=== PATIENT | male | born 1985 | race Caucasian/White ===

== ENCOUNTER 2019-06-02 10:18 | Emergency (ER) | payer MEDICAID, OTHER ==
[~2019-06-02] VITALS: Ht 185.4 cm; Wt 75.0 kg
[~2019-06-02 10:18] MED LIST: TEST200V10 IM
[2019-06-02] MEDS ORDERED: HYDROcodone/acetaminophen 10/325mg tab PO ONE (10:50)
[2019-06-02] MEDS ORDERED: ibuprofen tablet 400 MG TABLET PO ONE (10:50)
[2019-06-02 11:00] VITALS: BP 187/113
== END 2019-06-02 11:06 | disposition home or self-care (01) ==
LOC: ER 10:19
DX: S80.212A Abrasion, left knee, initial encounter (principal); S80.211A Abrasion, right knee, initial encounter; L98.8 Other specified disorders of the skin and subcutaneous tissue; I10 Essential (primary) hypertension; F12.90 Cannabis use, unspecified, uncomplicated; Z86.19 Personal history of other infectious and parasitic diseases; Z98.890 Other specified postprocedural states; Z79.899 Other long term (current) drug therapy; Y29.XXXA Contact with blunt object, undetermined intent, initial encounter; Y93.89 Activity, other specified; Y92.89 Other specified places as the place of occurrence of the external cause; Y99.8 Other external cause status
CPT/HCPCS: 99283

== ENCOUNTER 2019-08-11 23:23 | Emergency (ER) | payer MEDICAID ==
[~2019-08-11] VITALS: Ht 185.4 cm; Wt 100.0 kg
[2019-08-11 23:30] VITALS: BP 154/93
== END 2019-08-12 01:02 | disposition left against medical advice (07) ==
LOC: ER 23:23
DX: R07.1 Chest pain on breathing (principal); Z53.21 Procedure and treatment not carried out due to patient leaving prior to being seen by health care provider
CPT/HCPCS: 93005

== ENCOUNTER 2019-09-15 00:36 | Inpatient (IN) | payer MEDICAID ==
[~2019-09-15] VITALS: Ht 182.9 cm; Wt 100.0 kg
[2019-09-15] MEDS ORDERED: ondansetron/PF 4mg/2ml inj IV ONE (00:45)
[2019-09-15] MEDS ORDERED: normal saline 1000ML IV soln IVB ONE (00:45)
[2019-09-15] MEDS ORDERED: LIDOcaine 1% w/EPI 1:200,000 injection 10mL vial IM ONE (00:50)
[2019-09-15] MEDS ORDERED: iohexol 300mg/ml 100ml inj. ONE (00:58)
[2019-09-15] MEDS ORDERED: ketamine 50 mg/ml 10ml vial IV ONE (01:00)
[2019-09-15] MEDS: morphine 4 MG/ML inj SYRINge IV PRN ×3 (01:09→07:45)
[2019-09-15] MEDS ORDERED: LIDOcaine 1% W/epiNEPHrine 1:100,000 20ml vial IJ ONE (01:15)
[2019-09-15 01:30] LABS: BASOPHILS % (AUTO) 0.4 % (0-1); EOSINOPHILS # (AUTO) 0.3 X10'3 (0-0.9); EOSINOPHILS % (AUTO) 5.7 % (0-6); HEMATOCRIT 44.6 % (42.0-52.0); HEMOGLOBIN 15.4 g/dl (14.0-17.9); LYMPHOCYTES # (AUTO) 1.7 X10'3 (1.1-4.8); LYMPHOCYTES % (AUTO) 31.2 % (21-51); MEAN CORPUSCULAR HEMOGLOBIN 31.8 PG (27.0-31.0); MEAN CORPUSCULAR HGB CONC 34.5 g/dL (33.0-36.5); MEAN CORPUSCULAR VOLUME 92.2 FL (78-98); MEAN PLATELET VOLUME 7.2 FL (7.4-10.4); MONOCYTES # (AUTO) 0.5 X10'3 (0-0.9); MONOCYTES % (AUTO) 8.4 % (2-12); NEUTROPHILS # (AUTO) 2.9 X10'3 (1.8-7.7); NEUTROPHILS % (AUTO) 54.3 % (42-75); PLATELET COUNT 203 X10'3 (140-440); RED BLOOD COUNT 4.84 X10'6 (4.70-6.10); RED CELL DISTRIBUTION WIDTH 13.6 % (11.5-14.5); WHITE BLOOD COUNT 5.4 X10'3 (4.5-11.0)
[2019-09-15 01:37] LABS: ALANINE AMINOTRANSFERASE 45 U/L (12-78); ALBUMIN 3.2 G/DL (3.4-5.0); ALBUMIN/GLOBULIN RATIO 1.1 (1.1-1.5); ALKALINE PHOSPHATASE 76 IU/L (46-116); ANION GAP 7 (8-16); ASPARTATE AMINO TRANSFERASE 29 U/L (10-37); BILIRUBIN,TOTAL 0.4 MG/DL (0.1-1.0); BLOOD UREA NITROGEN 17 MG/DL (7-18); BUN/CREATININE RATIO 13.6 (5.4-32.0); CALCIUM 8.1 MG/DL (8.5-10.1); CHLORIDE 104 MMOL/L (99-107); CREATININE 1.25 MG/DL (0.60-1.10); GLUCOSE 143 MG/DL (70-104); POTASSIUM 3.7 MMOL/L (3.5-5.1); SODIUM 136 MMOL/L (135-145); TOTAL CARBON DIOXIDE 25.1 MMOL/L (24-32); TOTAL PROTEIN 6.2 G/DL (6.4-8.2); eGFR 66 ML/MIN
[2019-09-15] MEDS ORDERED: fentaNYL/PF 50MCG/1 ML 2ML syringe ONE (01:38)
[2019-09-15] MEDS ORDERED: naloxone 0.4 mg/ml inj IV PRN (01:45)
[2019-09-15] MEDS ORDERED: ondansetron/PF 4mg/2ml inj IV PRN (01:45)
[2019-09-15] MEDS ORDERED: metoclopramide 5 mg/ml inj IV PRN (01:45)
[2019-09-15] MEDS ORDERED: HYDROcodone/acetaminophen 10/325mg tab PO PRN (01:45)
--- NOTE | 2019-09-15 02:28 | NUR ---
sigrid contacted case#[id number]
[2019-09-15 03:10] VITALS: BP 114/58
--- NOTE | 2019-09-15 03:10 | NUR ---
Pt arrived to floor, pt with garbled speech, and unable to hold eyes open, oriented to name only at time time. Pt needing to be reoriented. Will place pt into room with sitter. Dressing to left lateral chest coming off, dressing applied and secured tubing. Approx 400ml of sang blood in chest tube. No crepitus, or air leak, to wall suction. O2 97%RA.
--- NOTE | 2019-09-15 06:19 | NUR ---
Problems reprioritized. Patient report given, questions answered & plan of care reviewed with Daja. Addendum: 09/15/19 at 0621 by Eve Trejo RN Amended: Links added.
[2019-09-15 07:30] VITALS: BP 112/67
--- NOTE | 2019-09-15 09:05 | NUR ---
Per Doctor Tacos, he will come and see patient. Get chest x-ray, put order for inpatient status. Give him a diet, regular.
--- NOTE | 2019-09-15 10:27 | NUR ---
pt has not voided yet and bladder scan was done 900ml in bladder. Pt states he usually only voids once a day and it is generally a large amount. pt trying to void. we will give him a little time with this information and continue to monitor void and see if straight cath or moreno are needed.
[2019-09-15] MEDS: HYDROcodone/acetaminophen 10/325mg tab PO PRN ×3 (10:49→21:15)
[2019-09-15 11:00] VITALS: BP 119/69
[2019-09-15] MEDS ORDERED: TEST200V10 IM (12:14)
--- NOTE | 2019-09-15 13:35 | NUR ---
Order put in for prn straight cath. Pt previously had large amount in urine and has been trying to void, refusing straight cath. We continue education on importance of draining bladder when so much is in it. Pt says he only voids once a day normally and it is a large amount when he goes. He feels that he needs more time and that it isn't a problem. Pt well educated on risks of bladder getting too full and at this point we will have to continue to monitor with bladder scans and continue to educate and if patient changes his mind and will allow a straigh cath then we will do it.
--- NOTE | 2019-09-15 14:40 | NUR ---
Bladder scan shows more than 999ml of urine. pt still unable to void, at this time he is now agreeable to straight cath. Will attempt.
--- NOTE | 2019-09-15 14:59 | NUR ---
straight cath done 1050ml out of bladder, pt tolerated well.
[2019-09-15 16:46] VITALS: BP 119/69
--- NOTE | 2019-09-15 18:17 | NUR ---
Problems reprioritized. Patient report given, questions answered & plan of care reviewed with Edwige GUZMAN.
--- NOTE | 2019-09-15 18:28 | NUR ---
Patient in room [facility]. I have received report from Daja Gurrola and had the opportunity to ask questions and assume patient care. Addendum: 09/15/19 at 1829 by Edwige Roth RN Amended: Links added.
[2019-09-15 20:00] VITALS: BP 127/63
--- NOTE | 2019-09-15 20:25 | NUR ---
received call from piercer operator stating a man named Hernán is here to see the pt. Hernán is not listed on group of 5 that can see the pt. He did not know the pass code and stated he talked with pt and it was ok for him to see the pt. went to talk with pt and he was snoring and without s&s of distress and it was past visiting hours. Toxicology Teacher notified he is not on the list, pt asleep and snoring and past visiting hours and not on list of names approved to see the pt.
--- NOTE | 2019-09-15 20:35 | NUR ---
visitor called pt on hisd cell phone and woke the pt up. CHERRY CUTTER called into room and pt told CHERRY CUTTER that friend called him and was downstairs to see him. Rn went into room and pt stated he did want the person added to the visitor list. he added his name plus 2 others then said that was it.
--- NOTE | 2019-09-15 21:10 | NUR ---
pt ambulated to [facility] attempt to void without success. bladder scanned for 629cc in there. pt visitor left just prior to this.
--- NOTE | 2019-09-15 22:35 | NUR ---
PT SNORNING NO S&S OF DISTRESS AT THIS TIME.
[2019-09-16] VITALS: BP 120/69
--- NOTE | 2019-09-16 00:13 | NUR ---
resting eyes closed without changes.
--- NOTE | 2019-09-16 02:07 | NUR ---
resting eyes closed chest tube in place and to low suction. no air leak. draining red sanguinous fld.
--- NOTE | 2019-09-16 04:00 | NUR ---
pt awoke ambulated to brp and voided 100cc. chest tube back to suction and medicated for pain with 2 norco's. dressing dry and intact. warm blanket given.
[2019-09-16] MEDS: HYDROcodone/acetaminophen 10/325mg tab PO PRN ×3 (04:03→19:22)
--- NOTE | 2019-09-16 05:15 | NUR ---
pt awoke for lab. positioned himself right side.
--- NOTE | 2019-09-16 06:30 | NUR ---
Patient in room [facility]. I have received report from Edwige GUZMAN and had the opportunity to ask questions and assume patient care.
--- NOTE | 2019-09-16 06:43 | NUR ---
Problems reprioritized. Patient report given, questions answered & plan of care reviewed with Reji Gurrola. Addendum: 09/16/19 at 0645 by Edwige Roth RN Amended: Links added.
[2019-09-16 07:00] VITALS: BP 120/54
--- NOTE | 2019-09-16 07:20 | NUR ---
Reviewed with patient the list of people (family and friend) who can receive information about his condition. Patient verified to me that people listed other than mom, stepdad, and grandfather can only get basic information about his condition (i.e., not detailed information about his medical condition). When I asked patient if these people listed know about the set password/passcode, he states "they know it!" I explained to patient that no information will be given unless they know the password, joie said yes, thank you!"
[2019-09-16] MEDS: morphine 4 MG/ML inj SYRINge IV PRN (07:34)
[2019-09-16 11:00] VITALS: BP 145/87
--- NOTE | 2019-09-16 13:41 | NUR ---
Patient still unable to urinate since this am as he claimed he went pee early am. Bladder scan shows 720ml of urine retained. Straight cath order reviewed. Will do straight cath
--- NOTE | 2019-09-16 13:56 | NUR ---
Straight cath done with assistance of male GLORY Pedraza. Patient was uncomfortable but able to tolerate. 600ml of yellow urine noted.
--- NOTE | 2019-09-16 17:56 | NUR ---
Dr. Coughlin made rounds with the charge nurse Joy, I let him know that chest tube output was only 20ml in my shift. Dr. Coughlin gave a verbal order to have chest tube on water seal tonight and tomorrow he will pull it out
--- NOTE | 2019-09-16 18:40 | NUR ---
Problems reprioritized. Patient report given, questions answered & plan of care reviewed with Edwige GUZMAN.
--- NOTE | 2019-09-16 18:45 | NUR ---
Patient in room [facility]. I have received report from Reji sharma and had the opportunity to ask questions and assume patient care. Addendum: 09/16/19 at 1846 by Edwige Roth RN Amended: Links added.
--- NOTE | 2019-09-16 19:00 | NUR ---
PT MEDICATED FOR PAIN WITH PO NORCO'S X2. CHEST TUBE WITH SCANT AMT DRAINAGE IN THE CHEST TUBE. REMOVED FROM SUCTION ON THE CHEST TUBE AND NOW PER dR ORDER TO WATER SEAL. PT TEACHING DONE REGARDING THIS.
[2019-09-16 20:00] VITALS: BP 137/75
--- NOTE | 2019-09-16 21:00 | NUR ---
PT SNORING RESTING EYES CLOSED WITHOUT CHANGES AT THIS TIME.
--- NOTE | 2019-09-16 22:31 | NUR ---
PT SNORING WITHOUT CHANGES.
[2019-09-17] VITALS: BP 114/73
[2019-09-17] MEDS: HYDROcodone/acetaminophen 10/325mg tab PO PRN ×4 (00:16→17:05)
--- NOTE | 2019-09-17 00:19 | NUR ---
medicated for c/o pain with 2 norcos for this awake and asking for jello and had voided.
--- NOTE | 2019-09-17 01:22 | NUR ---
PT RESTING EYES CLOSED WITHOUT CHANGES.
--- NOTE | 2019-09-17 03:00 | NUR ---
resting eyes closed without s&s of distress at this time.
--- NOTE | 2019-09-17 04:31 | NUR ---
pt awoke medicated for pain with 2 norco's noted 20cc out of serosanguineous fluid from chest tube. taking fluids well.
--- NOTE | 2019-09-17 04:39 | NUR ---
up to sink to brush his teeth. tolerating well after voiding in the urinal 1200cc clear yellow urine.
--- NOTE | 2019-09-17 05:59 | NUR ---
Problems reprioritized. Patient report given, questions answered & plan of care reviewed with Reji Gurrola. Addendum: 09/17/19 at 0600 by Edwige Roth RN Amended: Links added.
--- NOTE | 2019-09-17 06:32 | NUR ---
Patient in room [facility]. I have received report from Edwige GUZMAN and had the opportunity to ask questions and assume patient care.
[2019-09-17 07:00] VITALS: BP 121/81
--- NOTE | 2019-09-17 18:08 | NUR ---
Received report from MEGAN Mendoza. Patient is awake and alert on room air, in no apparent distress. Call light and items of frequent use within reach. Visitor at bedside. Will continue to monitor.
--- NOTE | 2019-09-17 18:23 | NUR ---
Problems reprioritized. Patient report given, questions answered & plan of care reviewed with Toya GUZMAN.
[2019-09-17 20:00] VITALS: BP 132/80
[2019-09-17] MEDS: morphine 4 MG/ML inj SYRINge IV PRN (20:00)
[2019-09-18] VITALS: BP 114/69
[2019-09-18] MEDS: HYDROcodone/acetaminophen 10/325mg tab PO PRN (04:28)
--- NOTE | 2019-09-18 06:30 | NUR ---
Patient in room [facility]. I have received report from Toya GUZMAN and had the opportunity to ask questions and assume patient care.
--- NOTE | 2019-09-18 06:32 | NUR ---
Problems reprioritized. Patient report given, questions answered & plan of care reviewed with MEGAN Cota.
[2019-09-18 07:49] VITALS: BP 116/70
[2019-09-18 11:00] VITALS: BP 126/76
[2019-09-18] MEDS: morphine 4 MG/ML inj SYRINge IV PRN (11:22)
--- NOTE | 2019-09-18 17:45 | NUR ---
Patient discharge paper work and IV taken out at this time. IV site showed minimal bleeding and canula was whole and intact. Patient discharge teaching was done with patient who expressed verbal understanding at this time. Patient stated his mom is going to be picking him up.
--- NOTE | 2019-09-18 18:20 | NUR ---
Problems reprioritized. Patient report given, questions answered & plan of care reviewed with Toya GUZMAN.
--- NOTE | 2019-09-18 18:41 | NUR ---
Received report from MEGAN Cota and had the opportunity to ask questions and assume patient care. Patient is awake and alert on room air, in no apparent distress. Call light and items of frequent use within reach. Will continue to monitor.
[2019-09-18 20:00] VITALS: BP 134/82
--- NOTE | 2019-09-18 20:25 | NUR ---
Patient's mom here to pick him up. All belongings sent with patient. PCT escorted patient out on wheelchair to lobby to private vehicle.
== END 2019-09-18 20:25 | disposition home or self-care (01) | DRG 135 ==
LOC: EEVIPCON 00:37 → ER 00:37 → ED HOLD 01:50 → SUR 3N 04:01
PROVIDERS: ADMIT Surgery; ATTEND Surgery
PROC: 0W9B30Z Drainage of Left Pleural Cavity with Drainage Device, Percutaneous Approach (ICD-10-PCS; principal; 2019-09-15)
PROC: BW241ZZ Computerized Tomography (CT Scan) of Chest and Abdomen using Low Osmolar Contrast (ICD-10-PCS; 2019-09-15)
PROC: 0HQ6XZZ Repair Back Skin, External Approach (ICD-10-PCS; 2019-09-15)
DX: S27.2XXA Traumatic hemopneumothorax, initial encounter (principal); B19.20 Unspecified viral hepatitis C without hepatic coma; F12.90 Cannabis use, unspecified, uncomplicated; I10 Essential (primary) hypertension; F17.210 Nicotine dependence, cigarettes, uncomplicated; X99.8XXA Assault by other sharp object, initial encounter; Y93.89 Activity, other specified; Y92.89 Other specified places as the place of occurrence of the external cause; Y99.8 Other external cause status; Z88.5 Allergy status to narcotic agent
CPT/HCPCS: 12001; 32551; 36415; 71045; 71260; 80053; 85025; 85610; 87081; 94760; 96361; 96374; 99291; G0378; J2270; J2405; J3010; Q9967

== ENCOUNTER 2019-09-25 18:24 | Emergency (ER) | payer MEDICAID ==
[~2019-09-25] VITALS: Ht 182.9 cm; Wt 91.6 kg
[2019-09-25 18:34] VITALS: BP 133/91
[2019-09-25] MEDS ORDERED: HYDROcodone/acetaminophen 10/325mg tab PO ONE (18:50)
[2019-09-25] MEDS ORDERED: HYDR-4383 PO (19:39)
[2019-09-25] MEDS ORDERED: NAPR-56 PO (19:39)
== END 2019-09-25 19:50 | disposition home or self-care (01) ==
LOC: ER 18:25
DX: S21.112D Laceration without foreign body of left front wall of thorax without penetration into thoracic cavity, subsequent encounter (principal); R06.02 Shortness of breath; I10 Essential (primary) hypertension; F12.90 Cannabis use, unspecified, uncomplicated; F10.99 Alcohol use, unspecified with unspecified alcohol-induced disorder; Y90.9 Presence of alcohol in blood, level not specified; Z86.19 Personal history of other infectious and parasitic diseases; Z88.5 Allergy status to narcotic agent; Z79.899 Other long term (current) drug therapy; W45.8XXD Other foreign body or object entering through skin, subsequent encounter; Z98.890 Other specified postprocedural states
CPT/HCPCS: 71046; 99283

== ENCOUNTER 2019-09-29 05:17 | Emergency (ER) | payer MEDICAID ==
[~2019-09-29] VITALS: Ht 182.9 cm; Wt 93.0 kg
[~2019-09-29 05:17] MED LIST changes: +HYDR-4383 PO; +NAPR-56 PO
[2019-09-29 06:08] VITALS: BP 125/85
== END 2019-09-29 06:14 | disposition home or self-care (01) ==
LOC: ER 05:18
DX: T82.897A Other specified complication of cardiac prosthetic devices, implants and grafts, initial encounter (principal); S30.1XXA Contusion of abdominal wall, initial encounter; S20.212A Contusion of left front wall of thorax, initial encounter; I10 Essential (primary) hypertension; F12.90 Cannabis use, unspecified, uncomplicated; Z86.19 Personal history of other infectious and parasitic diseases; Z98.890 Other specified postprocedural states; Z88.5 Allergy status to narcotic agent; Z79.899 Other long term (current) drug therapy; X58.XXXA Exposure to other specified factors, initial encounter; Y93.89 Activity, other specified; Y92.89 Other specified places as the place of occurrence of the external cause; Y99.8 Other external cause status
CPT/HCPCS: 71045; 74018; 99283